=== PATIENT | male | born 1960 | race African-American/Black ===

== ENCOUNTER 2017-03-11 00:20 | Emergency (ER) | payer MEDICAID, OTHER ==
[~2017-03-11] VITALS: Ht 182.9 cm; Wt 86.3 kg
[2017-03-11 00:20] VITALS: BP 158/99
[2017-03-11] MEDS ORDERED: DIPHENHYDRAMINE 25MG CAPSULE PO ONE (04:30)
== END 2017-03-11 06:22 | disposition home or self-care (01) ==
LOC: ER 00:20
DX: F41.9 Anxiety disorder, unspecified (principal); F22 Delusional disorders; F32.9 Major depressive disorder, single episode, unspecified; F20.9 Schizophrenia, unspecified; F31.9 Bipolar disorder, unspecified; F17.210 Nicotine dependence, cigarettes, uncomplicated; F15.10 Other stimulant abuse, uncomplicated
CPT/HCPCS: 99284; Q0163

== ENCOUNTER 2017-03-11 20:06 | Emergency (ER) | payer MEDICAID ==
[~2017-03-11] VITALS: Ht 172.7 cm; Wt 77.0 kg
[2017-03-11 20:10] VITALS: BP 148/78
[2017-03-11] MEDS ORDERED: LORAZEPAM 1MG TABLET PO ONE (23:15)
== END 2017-03-11 23:32 | disposition home or self-care (01) ==
LOC: ER 21:07
DX: F15.180 Other stimulant abuse with stimulant-induced anxiety disorder (principal)
CPT/HCPCS: 99284